=== PATIENT | female | born 1970 | race Caucasian/White ===

== ENCOUNTER 2020-01-17 07:52 | Emergency (ER) | payer OTHER ==
[~2020-01-17] VITALS: Ht 160 cm; Wt 77.1 kg
[2020-01-17] MEDS ORDERED: FURO40 PO (08:12)
[2020-01-17] MEDS ORDERED: Prozac40 MG PO (08:12)
[2020-01-17] MEDS ORDERED: Vistaril25 MG PO (08:36)
[2020-01-17] MEDS ORDERED: Inderal40 MG PO (08:36)
== END 2020-01-17 09:17 | disposition home or self-care (01) ==
LOC: ER 07:52
DX: I10 Essential (primary) hypertension (principal); F41.9 Anxiety disorder, unspecified; G43.909 Migraine, unspecified, not intractable, without status migrainosus; Z79.899 Other long term (current) drug therapy
CPT/HCPCS: 93005; 93010; 99283-25

== ENCOUNTER 2022-10-30 09:54 | Emergency (ER) | payer OTHER ==
[~2022-10-30] VITALS: Ht 160 cm; Wt 96.2 kg
[~2022-10-30 09:54] MED LIST: FURO40 PO; Inderal40 MG PO; Prozac40 MG PO; Vistaril25 MG PO
[2022-10-30] MEDS ORDERED: MIRT15 PO (10:32)
[2022-10-30] MEDS ORDERED: BUSP10 PO ×2 (10:32→10:42)
== END 2022-10-30 10:50 | disposition home or self-care (01) ==
LOC: ER 09:54
DX: Z76.0 Encounter for issue of repeat prescription (principal); I10 Essential (primary) hypertension; Z79.899 Other long term (current) drug therapy
CPT/HCPCS: 99281